=== PATIENT | female | born 1985 | race Caucasian/White ===

== ENCOUNTER 2016-12-01 09:49 | Emergency (ER) | payer SELFPAY | END 2016-12-01 13:55 | disposition home or self-care (01) | LOC: ER 09:49 | DX: O99.89 Other specified diseases and conditions complicating pregnancy, childbirth and the puerperium (principal); R10.2 Pelvic and perineal pain; Z3A.01 Less than 8 weeks gestation of pregnancy | CPT/HCPCS: 36415 ==